=== PATIENT | female | born 1995 | race Two or more races ===

== ENCOUNTER 2023-04-21 10:41 | Emergency (ER) | payer OTHER ==
[~2023-04-21] VITALS: Ht 165.1 cm; Wt 59.0 kg
[2023-04-21 11:45] LABS: HEMATOCRIT 38.3 % (36.0-45.00); MEAN CELL VOLUME 87.2 fL (80.00-100.00); MEAN CORPUSCULAR HEMOGLOBIN 29.6 pg (27.00-32.0); MEAN CORPUSCULAR HGB CONC 33.9 g/dl (32.0-36.0); PLATELET COUNT 245 K/uL (150-450); RED CELL DISTRIBUTION WIDTH 13.7 % (11.5-14.5)
[2023-04-21] MEDS ORDERED: OSEL75CA PO (12:24)
[2023-04-21] MEDS ORDERED: TUSNEL LIQUID178 ML PO (12:24)
[2023-04-21] MEDS ORDERED: DOLOGEN CAPLET1 EACH PO (12:24)
== END 2023-04-21 12:30 | disposition home or self-care (01) ==
LOC: ER 10:43
PROVIDERS: General Practice
DX: J10.1 Influenza due to other identified influenza virus with other respiratory manifestations (principal); B34.9 Viral infection, unspecified; Z20.822 Contact with and (suspected) exposure to COVID-19

== ENCOUNTER 2024-03-21 14:56 | Emergency (ER) | payer OTHER ==
[~2024-03-21] VITALS: Ht 165.1 cm; Wt 63.5 kg
[~2024-03-21 14:56] MED LIST: DOLOGEN CAPLET1 EACH PO; OSEL75CA PO; TUSNEL LIQUID178 ML PO
[2024-03-21 15:20] VITALS: BP 103/66; O2SAT 96
[2024-03-21] MEDS ORDERED: GUAIFENESIN/DEXTROMETHORPHAN 10ML BLIST.PACK PO ONE ×2 (16:00→16:19)
[2024-03-21] MEDS ORDERED: CETIRIZINE HCL 5 MG/5 ML ML PO ONE (16:00)
[2024-03-21] MEDS ORDERED: CETIRIZINE HCL 5MG/5ML BLIST.PACK PO ONE (16:19)
[2024-03-21 16:55] LABS: HEMOGLOBIN 12.4 g/dL (12.0-15.00); MEAN CELL VOLUME 88.9 fL (80.00-100.00); MEAN CORPUSCULAR HGB CONC 32.6 g/dl (32.0-36.0); PLATELET COUNT 266 K/uL (150-450); RED BLOOD COUNT 4.27 M/uL (4.00-6.00); RED CELL DISTRIBUTION WIDTH 13.6 % (11.5-14.5)
[2024-03-21] MEDS ORDERED: SINGULAIR10 MG PO (17:53)
[2024-03-21] MEDS ORDERED: QC TUSSIN DM L118 ML PO (17:53)
[2024-03-21] MEDS ORDERED: ZITHROMAX500 MG PO (17:53)
[2024-03-21] MEDS ORDERED: ALBUTEROL1.25 MG/3 IH (17:53)
[2024-03-21] MEDS ORDERED: IPRATROPIU0.2 MG/1 M IH (17:53)
[2024-03-21] MEDS ORDERED: ZYRTEC10 MG PO (17:53)
[2024-03-21] MEDS ORDERED: ACETAMINOPHEN 500 MG GEL..CAP PO ONE ×2 (18:00→18:07)
== END 2024-03-21 18:26 | disposition home or self-care (01) ==
LOC: ER 14:58
PROVIDERS: Preventive Medicine Public Health & General Preventive Medicine
DX: R53.81 Other malaise (principal); J06.9 Acute upper respiratory infection, unspecified; Z20.822 Contact with and (suspected) exposure to COVID-19

== ENCOUNTER 2024-09-18 20:49 | Emergency (ER) | payer OTHER ==
[~2024-09-18] VITALS: Ht 165.1 cm; Wt 63.5 kg
[~2024-09-18 20:49] MED LIST changes: +ALBUTEROL1.25 MG/3 IH; +IPRATROPIU0.2 MG/1 M IH; +QC TUSSIN DM L118 ML PO; +SINGULAIR10 MG PO; +ZITHROMAX500 MG PO; +ZYRTEC10 MG PO
[2024-09-18] MEDS ORDERED: EPINEPHRINE HCL/PF 1 MG/ML AMPUL SUBCUTANEO ONE (21:00)
[2024-09-18] MEDS ORDERED: DIPHENHYDRAMINE HCL 50 MG/ML VIAL 1ML IV ONE (21:00)
[2024-09-18] MEDS ORDERED: METHYLPREDNISOLONE SOD SUCC 125 MG VIAL IV ONE (21:00)
[2024-09-18 21:26] LABS: BASO % 0.6 % (0.1-1.2); EOS # 0.42 (0.04-0.54); EOS % 3.4 % (0.7-7.0); HEMATOCRIT 42.7 % (34.1-44.9); HEMOGLOBIN 14.5 g/dL (11.2-15.7); LYMPH # 4.42 (1.18-3.74); LYMPH % 35.4 % (19.3-53.1); MEAN CORPUSCULAR HEMOGLOBIN 29.2 pg (25.6-32.2); MONO # 0.74 (0.24-0.82); MONO % 5.9 % (4.7-12.5); NEUT # 6.77 (1.56-6.13); NEUT % 54.3 % (34.0-71.1); PLATELET COUNT 352 K/uL (163-369); RED BLOOD COUNT 4.96 M/uL (3.93-5.22)
[2024-09-18] MEDS ORDERED: MEDROLPACK PO (22:46)
[2024-09-18] MEDS ORDERED: BENADRYL ALLERG50 MG PO (22:46)
== END 2024-09-18 22:55 | disposition home or self-care (01) ==
LOC: ER 20:49
PROVIDERS: General Practice
DX: T78.1XXA Other adverse food reactions, not elsewhere classified, initial encounter (principal); Z91.018 Allergy to other foods; Z91.013 Allergy to seafood; X58.XXXA Exposure to other specified factors, initial encounter

== ENCOUNTER 2024-11-20 19:17 | Emergency (ER) | payer OTHER ==
[~2024-11-20] VITALS: Ht 165.1 cm; Wt 63.5 kg
[~2024-11-20 19:17] MED LIST changes: +BENADRYL ALLERG50 MG PO; +MEDROLPACK PO
[2024-11-20] MEDS ORDERED: DIPHENHYDRAMINE HCL 50 MG/ML VIAL 1ML ONE (19:25)
[2024-11-20] MEDS ORDERED: METHYLPREDNISOLONE SOD SUCC 125 MG VIAL ONE (19:25)
[2024-11-20] MEDS ORDERED: EPINEPHRINE HCL/PF 1 MG/ML AMPUL ONE (19:25)
[2024-11-20] MEDS ORDERED: METHYLPREDNISOLONE SOD SUCC 125 MG VIAL IV ONE (19:30)
[2024-11-20] MEDS ORDERED: EPINEPHRINE HCL/PF 1 MG/ML AMPUL SUBCUTANEO ONE (19:30)
[2024-11-20] MEDS ORDERED: DIPHENHYDRAMINE HCL 50 MG/ML VIAL 1ML IV ONE (19:30)
[2024-11-20] MEDS ORDERED: 0.9 % SODIUM CHLORIDE 500 ML IV ONE (19:30)
[2024-11-20] MEDS ORDERED: EPIPEN 2-P0.3 MG/0.3 IM (20:54)
[2024-11-20] MEDS ORDERED: MEDROLPACK PO (20:54)
[2024-11-20] MEDS ORDERED: BENADRYL ALLERG25 MG PO (20:54)
== END 2024-11-20 22:39 | disposition home or self-care (01) ==
LOC: ER 19:17
DX: T78.3XXA Angioneurotic edema, initial encounter (principal); T78.40XA Allergy, unspecified, initial encounter; X58.XXXA Exposure to other specified factors, initial encounter; Z87.09 Personal history of other diseases of the respiratory system; Z91.018 Allergy to other foods; Z91.013 Allergy to seafood